=== PATIENT | male | born 1995 | race Caucasian/White ===

== ENCOUNTER 2018-11-30 05:12 | Emergency (ER) | payer OTHER ==
[~2018-11-30] VITALS: Ht 172.7 cm; Wt 81.6 kg
[2018-11-30 05:12] VITALS: BP_SYST 143
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
--- NOTE | 2018-11-30 05:41 | NUR ---
Written and verbal consent obtained from patient for blood alcohol, name and verified by patient. Disinfected patient's skin with Povidine-Iodine that did not contain alcohol or other volatile organic compound. Collected the blood from the subject named by venipuncture, in the presence of Officer dominga Rico #[id number]. Used a sterile, dry hypodermic needle and dry vacuum blood collection. Two dry vacuum blood collection was supplied by the officer named above. Withdrew a specimen of blood from RAC of the subject named above. Inverted both blood tube several times to ensure that the preservative and anticoagulant were thoroughly mixed in the blood specimen. I initialed both blood tube label for identification. The labeled blood tubes was handed directly to the Officer named above. The blood tubes stopper remained in place while I had possession of the blood tubes. The Officer placed tubes into envelope and sealed it in my presence. Envelope initialed by myself and Officer named above. Patient tolerated well, bandage applied, and bleeding controlled.
--- NOTE | 2018-11-30 05:50 | NUR ---
Dr. Guillen at bedside to assess pt.
[2018-11-30 06:02] VITALS: BP_SYST 143
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
== END 2018-11-30 06:02 ==
LOC: SED 05:12
DX: F10.129 Alcohol abuse with intoxication, unspecified (principal); Y93.89 Activity, other specified; V43.62XA Car passenger injured in collision with other type car in traffic accident, initial encounter; Y92.410 Unspecified street and highway as the place of occurrence of the external cause; Y99.8 Other external cause status
CPT/HCPCS: 99283